=== PATIENT | male | born 1990 | race Caucasian/White ===

== ENCOUNTER 2019-09-07 09:54 | Emergency (ER) | payer OTHER ==
[2019-09-07 10:22] VITALS: BP 148/97
[2019-09-07] MEDS ORDERED: Ibuprofen TAB* 600 MG PO ONE (10:32)
--- NOTE | 2019-09-07 10:47 | UC ---
Shoulder Pain HPI - HPI Summary HPI Summary: The patient is a 29-year-old male that slipped on wet concrete today at work and fell on his right shoulder. He is complaining of pain in the region of his right clavicle as well as his humeral head. He has pain with abduction. He has some numbness and tingling of his right arm. He denies any head or neck injury. He states that he has had a torn right shoulder in the past. He has never had any surgery on this shoulder. - History of Current Complaint Chief Complaint: UCGeneralIllness Stated Complaint: WC S/P FALL RIGHT SHOULDER INJURY Time Seen by Provider: 09/07/19 10:11 Hx Obtained From: Patient Onset/Duration: Sudden Onset Timing: Constant Severity Initially: Moderate Severity Currently: Moderate Pain Intensity: 6 Pain Scale Used: 0-10 Numeric Character: Dull, Aching Aggravating Factor(s): Movement Alleviating Factor(s): Rest Associated Signs And Symptoms: Positive: Numbness/Tingling Related History: Occupational Injury, Dominant Hand Right Torso: 1 - tender here - Allergies/Home Medications Allergies/Adverse Reactions: Allergies Allergy/AdvReac Type Severity Reaction Status Date / Time No Known Allergies Allergy Verified 09/07/19 10:16 PMH/Surg Hx/FS Hx/Imm Hx Previously Healthy: Yes - Surgical History Surgical History: None - Family History Known Family History: Positive: Hypertension - Social History Alcohol Use: None Substance Use Type: None Smoking Status (MU): Never Smoked Tobacco Review of Systems All Other Systems Reviewed And Are Negative: Yes Constitutional: Positive: Negative Skin: Positive: Negative Eyes: Positive: Negative ENT: Positive: Negative Respiratory: Positive: Negative Cardiovascular: Positive: Negative Gastrointestinal: Positive: Negative Genitourinary: Positive: Negative Motor: Positive: Negative Neurovascular: Positive: Negative Musculoskeletal: Positive: Arthralgia - right shoulder Neurological: Positive: Negative Psychological: Positive: Negative Physical Exam Triage Information Reviewed: Yes Appearance: Well-Appearing, No Pain Distress, Well-Nourished Vital Signs: Initial Vital Signs Temp 98.9 F 09/07/19 10:16 Pulse 88 09/07/19 10:16 Resp 16 09/07/19 10:16 BP 148/97 09/07/19 10:16 Pulse Ox 98 09/07/19 10:16 Vital Signs Reviewed: Yes Eyes: Positive: Conjunctiva Clear ENT: Positive: Hearing grossly normal. Negative: Nasal congestion, Nasal drainage, Trismus, Hoarse voice Neck: Positive: Supple, Nontender, No Lymphadenopathy Respiratory: Positive: Lungs clear, Normal breath sounds, No respiratory distress Cardiovascular: Positive: RRR, No Murmur Musculoskeletal: Positive: ROM Limited @ - right shoulder , unable to abduct > 90 degrees, Other: - good distal pulses Neurological: Positive: Alert Psychological Exam: Normal Skin Exam: Normal Diagnostics - Radiology No standard instances Radiology Interpretation Completed By: Radiologist Summary of Radiographic Findings: no fx Shoulder Course/Dx - Differential Dx/Diagnosis Provider Diagnosis: Right shoulder injury, Elevated BP without diagnosis of hypertension Discharge ED - Sign-Out/Discharge Documenting (check all that apply): Patient Departure All imaging exams completed and their final reports reviewed: Yes - Discharge Plan Condition: Critical Disposition: HOME Prescriptions: Naproxen [Naproxen 500 mg tab] 500 mg PO BID PRN #20 tablet PRN Reason: Pain Patient Education Materials: How to Use a Sling (ED), Shoulder Pain (ED) Forms: *Work Release Referrals: Danny Mena MD [Medical Doctor] - 1 Day Additional Instructions: ice 2-3 x daily - Billing Disposition and Condition Condition: CRITICAL Disposition: Home
== END 2019-09-07 11:32 | disposition home or self-care (01) ==
LOC: UCCORT 09:54
DX: S49.91XA Unspecified injury of right shoulder and upper arm, initial encounter (principal); R03.0 Elevated blood-pressure reading, without diagnosis of hypertension; W01.0XXA Fall on same level from slipping, tripping and stumbling without subsequent striking against object, initial encounter; Y92.9 Unspecified place or not applicable; Y99.0 Civilian activity done for income or pay
CPT/HCPCS: 99203; A9270-GY; G0463